=== PATIENT | female | born 1960 | race Caucasian/White ===

== ENCOUNTER 2023-11-06 12:36 | Day surgery (SDC) | payer BC, SELFPAY ==
[2023-11-06] VITALS (13 sets, daily range): BP systolic 99–112; BP diastolic 45–60; BMI 23.1
--- NOTE | 2023-11-06 07:54 | ED.GENMED ---
History of Present Illness
General
Chief Complaint: Abdominal Pain
Time Seen by Provider: 11/06/23 07:38
Travel History
Have you had any contact with someone who has COVID-19?: No
Do you have any symptoms of coronavirus? Fever > 100 degrees, chills, cough, shortness of breath, sore throat, loss of taste or smell, muscle aches, or headache?: No
History of Present Illness
History of Present Illness:
63-year-old female presents to the emergency department for evaluation of upper abdominal pain that began last night associated with nausea, vomiting, and diarrhea. The symptoms improved this morning but focal right lower quadrant pain developed.
Denies any fevers or night sweats. No history of abdominal surgeries. No ill contacts at home.
Review of Systems
Review of Systems
Allergies reviewed?: Yes
All Other Systems: ROS reviewed and negative except as documented in HPI and ROS
Phy Exam
Physical Exam
Physical Exam:
GEN: Well appearing, NAD, WDWN
HEENT: Oral mucosa moist, no scleral icterus
Cardiac: Regular rate and rhythm
Lung: No respiratory distress, no tachypnea
Abdomen: Soft, severe tenderness to the right lower quadrant consistent with McBurney's point, no rigidity
MSK: No gross deformity or injuries
Skin: Good color, no pallor or jaundice, no rashes
Neuro: AO x3, moves all extremities freely
Psych: Calm, cooperative
Course
Orders/Labs/Results
Orders:
Orders
11/06/23 Breakfast
NPO
Allow oral meds: No
Allow clear liquids: No
11/06/23 07:53
CT Abd/Pel (IV only)-DH only Urgent
Comment:
Reason For Exam: RLQ pain
0.9% Sodium Chloride 1000 ml [Nss] 1,000 ml IV BOLUS
Ondansetron Injectable [Zofran] 4 mg IV NOW STA
11/06/23 07:57
Complete Blood Count/With Diff Urgent
Comprehensive Metabolic Panel Urgent
Lipase Urgent
11/06/23 10:31
Piperacillin/Tazo 3.375 Gram [Zosyn] 3.375 gram in 50 ml IV NOW
11/06/23 11:20
HYDROmorphone [Dilaudid] 0.5 mg IV Q2HPRN PRN
11/06/23 12:30
Bupivacaine Mpf 0.25% [Sensorcaine-Mpf 0.25% Vial] 30 ml .ROUTE .STK-MED ONE
11/06/23 12:33
Fentanyl Citrate/Pf [Sublimaze] 100 mcg .ROUTE .STK-MED ONE
11/06/23 12:37
HYDROmorphone [Dilaudid] 0.5 mg IV Q2HPRN PRN
11/06/23 12:55
Diphenhydramine [Benadryl] 50 mg .ROUTE .STK-MED ONE
11/06/23 13:00
Dexamethasone Sod Phosphate [Decadron] 20 mg .ROUTE .STK-MED ONE
Lidocaine HCl/Pf [Xylocaine-Mpf 1% Vial] 50 mg .ROUTE .STK-MED ONE
Ondansetron Injectable [Zofran] 4 mg .ROUTE .STK-MED ONE
Propofol [Diprivan] 20 ml .ROUTE .STK-MED
11/06/23 13:02
Acetaminophen 1000MG/100Ml [Ofirmev] 1,000 mg in 100 ml .ROUTE .STK-MED
Ketorolac [Toradol] 30 mg .ROUTE .STK-MED ONE
11/06/23 13:15
OR Pathology Routine
Pre-Operative Diagnosis: acute appendicitis
Post-Operative Diagnosis: acute appendicitis
Operative Procedure: Lap Appendectomy
Surgeon: Naomi
Circulating Nurse: Pavan
Specimen Type: appendix
11/06/23 13:21
Glycopyrrolate [Robinul] 0.2 mg .ROUTE .STK-MED ONE
Neostigmine [Prostigmin] 3 mg .ROUTE .STK-MED ONE
11/06/23 13:52
Admit Patient As Directed
Co-Sign Provider:
Level of Care: Post Proc/Surg Recovery
Assign to:: Medical/Surgical
Physician / Group: [facility]/General surgery
Diagnosis: acute appendicitis
Reason for Overnight Stay: Standard of Care
Code Status As Directed
Resuscitation Status: Full Code
Acetaminophen [Tylenol] 650 mg PO Q4HPRN PRN
HYDROmorphone [Dilaudid] 1 mg IV Q4HPRN PRN
Ketorolac [Toradol] 10 mg IV Q6HPRN PRN
Oxycodone [Roxicodone] 5 mg PO Q4HPRN PRN
Activity As Directed
Activity Level: Out of Bed-Early Mobility
Vital Signs As Directed
Frequency: Per unit guidelines
11/06/23 13:53
Pneumatic Compression Sleeves As Directed
Type: Knee high
DX Deep Vein Thrombosis Video Routine
11/06/23 14:00
0.9% Sodium Chloride 1000 ml [Nss] 1,000 ml IV 80 mls/hr
Piperacillin/Tazo 3.375 Gram [Zosyn] 3.375 gram in 50 ml IV Q6H
11/06/23 14:18
Fentanyl Citrate/Pf [Sublimaze] 25 mcg IV PACU-Q5MPRN PRN
Fentanyl Citrate/Pf [Sublimaze] 50 mcg IV PACU-Q5MPRN PRN
Meperidine [Demerol] 12.5 mg IV PACU-Q5MPRN PRN
Ondansetron Injectable [Zofran] 4 mg IV PACU-ONCEPRN PRN
Prochlorperazine [Compazine] 5 mg IV PACU-ONCEPRN PRN
Notify MD As Directed
Notify physician if: for SDS patients with known or suspected sleep obstructive sleep apnea, monitor in the
PACU.
Notify MD for any apneic/desaturation episodes
O2 Therapy [RESP] Urgent
Titrate/Wean O2 to maintain O2 sat greater than (%): 92
Special Instructions: -Provide supplemental oxygen to achieve O2 sat of 92% or greater.
-After 15 min, may wean O2 and discontinue if patient is able to maintain O2 sat of 92%
or greater during recovery period.
If patient is a discharge home, without oxygen therapy, notify anestheiologist if
unable to maintain O2 SAT of 92% or greater on room air for MD clearance.
11/06/23 14:30
Normosol (Mult Electrolytes) [Normosol-R] 1,000 ml IV PER PROTOCOL
11/06/23 Dinner
Regular
11/06/23 18:00
Enoxaparin Sodium [Lovenox] 40 mg SC QPM
Abnormal Lab Results
11/06/23
07:57
WBC 16.3 H 10^3/uL
(4.8-10.8)
RBC 3.82 L 10^6/uL
(4.20-5.40)
Hgb 11.7 L g/dL
(12.0-16.0)
Hct 32.9 L %
(37.0-47.0)
Abs Immat Gran (auto) 0.1 H 10^3/uL
(0-0.05)
Absolute Neuts (auto) 14.6 H 10^3/uL
(1.4-6.5)
Absolute Lymphs (auto) 0.6 L 10^3/uL
(1.2-3.4)
Absolute Monos (auto) 1.0 H 10^3/uL
(0.1-0.6)
Immature Gran % 0.6 H %
(0-0.5)
Neutrophils % 89.7 H %
(42.2-75.2)
Lymphocytes % 3.5 L %
(20.5-51.1)
BUN 19 H mg/dl
(7-17)
Glucose 135 H mg/dl
(70-99)
11/06/23 07:57
11/06/23 07:57
Vital Signs
Initial and Last Documented VS:
Initial Vital Signs
Temp Pulse Resp BP Pulse Ox
99.0 F 84 20 100/56 98
11/06/23 07:27 11/06/23 07:27 11/06/23 07:27 11/06/23 07:27 11/06/23 07:27
Last Documented Vital Signs
Temp Pulse Resp BP Pulse Ox
98.1 F 84 15 104/48 99
11/06/23 14:00 11/06/23 14:02 11/06/23 11:30 11/06/23 14:02 11/06/23 11:30
MDM/Problems Addressed
MDM/Problems Addressed:
CT confirms appendicitis, gen surg made aware will take to OR for intervention
*Critical Care Note
Total Time (30-74mins, 75-104mins- exclusive of procedures): Not Applicable
ED Attending Note
-
Portions of this chart may have been created with voice recognition software.� Occasional wrong word or��sound alike� substitutions may have occurred due to the inherent limitations of voice recognition software.
Discharge Plan
Departure
Patient Disposition: Admit
Date of Disposition: 11/06/23
Time of Disposition: 10:33
Admit to: Med/Surg
Presentation/result/management discussed w/ accepting MD/DO: General Surgery
Discharge Problem:
Acute appendicitis
Interventions
Interventions:
*Risk Screen - Suicide Last Done: 11/06/23 08:06
*General Assessment Last Done: 11/06/23 08:06
*Neglect/Abuse Screening Last Done: 11/06/23 08:06
ED- Fall Risk Assessment Last Done: 11/06/23 12:12
*ED COVID-19 Vaccine History Last Done: 11/06/23 07:43
*Nursing Disposition Last Done: 11/06/23 12:12
PO-Zzupab-Othndbjpmp Assessment Last Done: 11/06/23 08:06
Discharge Date and Time
Discharge Date/Time: 11/06/23 12:18
[2023-11-06] MEDS: NSS 1000 IV ×2 (08:02→14:30)
[2023-11-06] MEDS: ZOFRAN 4 MG IV (08:03)
[2023-11-06 08:08] LABS: % Basophils 0.1 % (0-2); % Eosinophils 0.1 % (0-6); % Immature Granulocytes 0.6 % (0-0.5); % Lymphocytes 3.5 % (20.5-51.1); % Neutrophils 89.7 % (42.2-75.2); Absolute Immature Granulocytes 0.1 10^3/uL (0-0.05); Absolute Lymphocytes 0.6 10^3/uL (1.2-3.4); Absolute Neutrophils 14.6 10^3/uL (1.4-6.5); Hematocrit 32.9 % (37.0-47.0); Hemoglobin 11.7 g/dL (12.0-16.0); Mean Corp Hgb Conc. 35.6 g/dL (33.0-37.0); Mean Corpuscular Hgb 30.6 pg (27.0-31.0); Mean Corpuscular Volume 86.1 fL (81.0-99.0); Mean Platelet Volume 10.2 fL (7.4-10.4); Nucleated Red Blood Cells % 0 %; Platelet Count 181 10^3/uL (130-400); Red Blood Cell Count 3.82 10^6/uL (4.20-5.40); Red Cell Dist. Width 11.6 % (11.5-14.5); White Blood Cell Count 16.3 10^3/uL (4.8-10.8)
[2023-11-06 08:28] LABS: ALT (SGPT) 19 U/L (0-35); AST (SGOT) 25 U/L (14-36); Albumin 4.3 g/dl (3.5-5.0); Alkaline Phosphatase 91 U/L (38-126); Blood Urea Nitrogen 19 mg/dl (7-17); Carbon Dioxide 25 mmol/L (22-30); Chloride 102 mmol/L (98-107); Estimated Creatinine Clearance 83 ml/min; Glucose 135 mg/dl (70-99); Lipase 40 U/L (23-300); Potassium 4.2 mmol/L (3.5-5.1); Sodium 136 mmol/L (135-145); Total Bilirubin 1.2 mg/dl (0.2-1.3); Total Protein 7.3 g/dl (6.3-8.2); eGFR > 60.00
[2023-11-06] MEDS: ZOSYN 50 IV ×3 (10:36→21:49)
--- NOTE | 2023-11-06 11:04 | HPS.HSE ---
Addendum entered and electronically signed by Javi Salgado MD 11/06/23 11:20:
Patient seen and examined. Agree with assessment plan as documented below.
Patient is a 63 yo F with no pertinent PMH who presents with less than 24 hours of periumbilical abdominal pain localizing to the RLQ. Pain and symptoms have progressed overnight. Associated nausea and vomiting. No fevers or chills. No urinary
symptoms. Looser stools. Denies any chronic GI issues. No family history of IBD or colon cancers. Prior colonoscopy was notable for polyps performed at outside institutions.
Gen: NAD
Abd: soft, tender to palpation in RLQ, ND, non-peritoneal
Labs and CT scan imaging were reviewed.
Patient is a 63 yo F p/w acute appendicitis
The natural history and pathophysiology of appendicitis was discussed. Anatomy was reviewed. Options for management including medical management with antibiotics versus surgical management with appendectomy were considered and discussed. The pros
and cons of both approaches was discussed. Specifically, we discussed failure of medical management and future episodes of sinusitis versus surgical risk. Recommend and plan for appendectomy.
Plan for laparoscopic appendectomy. The procedure itself, as well as the risks, benefits, and alternatives was discussed. Specifically, we discussed the risk of bleeding, infection, injury to surrounding structures (bowel, bladder), staple line
leak, need for open procedure. Typical postprocedure recovery was discussed. All questions answered. Consent signed.
-- Laparoscopic appendectomy
-- NPO, IVF
-- Antibiotics: Zosyn
-- Pain control: Tylenol and IV Dilaudid
Original Note:
Family Physician
-
Family Physician: NOT KNOW UNKNOWN - PT DOES
Chief Complaint
-
abdominal pain
History of Present Illness
This is a 63 yo female without prior surgical history who presents with abdominal pain which began yesterday evening. Initially, her pain was generalized, but as the night wore on and pain became more severe, it localized to the RLQ. She had
diarrhea overnight with nausea and vomiting. She notes no fevers or chills. Pain is a little improved after analgesics in the ED, but tender to the RLQ with light palpation.
Medical History
Past Medical History
Past Medical History: Reports Psychiatric (depression) and Other (OA right hip)
Past Surgical History: Reports None and Other (Routine colonoscopies x2 with polypectomy with first colonoscopy)
Social History
Tobacco: Non-smoker
Alcohol: Occasional
Personal: Single
Living: Alone
Family History
Family History: Not pertinent
Allergies / Home Medications
Allergies reflects when Allergies were last updated in [employer].
Home Medications with original date entered in [employer]
Allergy/Medication List:
NKDA
Takes Celexa 10mg PO daily and Ibuprofen 400mg prn
Review of Systems
-
History Source: Patient and Family
A 12 point ROS was completed and negative except as noted: Yes
Physical Exam
Vital Signs
Vital Signs
Temp Pulse Resp BP Pulse Ox
99.0 F 68 16 110/60 100
11/06/23 07:27 11/06/23 09:55 11/06/23 09:55 11/06/23 09:55 11/06/23 09:55
Physical Exam
General: Well Developed and Well Nourished
HEENT: Moist mucous membranes
Respiratory: Non Labored Respirations
GI: Soft, Non Distended and Tender (RLQ)
Skin: Warm and Dry
Neuro: Awake, Alert and AO x 3
Psych: Calm
Laboratory Results
-
11/06/23 07:57
11/06/23 07:57
Laboratory Results
Total Bilirubin 1.2 mg/dl (0.2-1.3) 11/06/23 07:57
AST 25 U/L (14-36) 11/06/23 07:57
ALT 19 U/L (0-35) 11/06/23 07:57
Alkaline Phosphatase 91 U/L (38-126) 11/06/23 07:57
Lipase 40 U/L (23-300) 11/06/23 07:57
Data Reviewed
-
CT Scan: Image Personally Visualized and interpreted, Report Reviewed by me, Discussed with Physician and Discussed with Patient
Lab Data: Labs Reviewed by me, Discussed with Physician and Discussed with Patient
Old Records: Reviewed
Impression/Plan
-
IMPRESSION:
63 yo female presenting with <24 hours of abdominal pain with n/v/d. Pain localizing to the RLQ with tenderness on exam. CT imaging reviewed and consistent with acute appendicitis. AFVSS. Leukocytosis present. ABX given in ED.
PLAN:
NPO except meds
OR later today for lap appi
IV zosyn given in ED
Analgesics/antiemetics prn
--- NOTE | 2023-11-06 11:16 | W.SUR.PREOP ---
Pre-Operative Surgical Note
-
I have examined this patient prior to the performance of the scheduled procedure.
The patient's condition is unchanged from the time of the current History and
Physical and the patient is able to undergo the scheduled procedure.
--- NOTE | 2023-11-06 13:55 | W.IMMPOSTOP ---
Addendum entered and electronically signed by Javi Salgado MD 11/06/23 14:10:
[facility]#[id number]
Original Note:
Surgical Immed Post Op Note
-
Primary Surgeon: Naomi
Assisting Surgeon: None
Pre-op Diagnosis: Acute appendicitis
Post-op Diagnosis: Acute appendicitis
Procedure Performed: Laparoscopic appendectomy
Anesthesia Type: General
Specimen / Cultures:
1. Appendix
Estimated Blood Loss: 3 cc
Complications: None
Operative Findings:
1. Acutely inflamed gangrenous appendix, no jason perforation, turbid fluid within pelvis
2. Mesentery and attachments take with Ligasure, base with nance load stapler
--- NOTE | 2023-11-06 15:11 | PTCARENOTE ---
pt to floor 1510. family in room. pt has mild discomfort. RFA NSS 80ml/hr. 3 lap sites. bed low, call monson in reach.
[2023-11-06] MEDS: LOVENOX 40 MG SC (17:03)
[2023-11-07] MEDS: NSS 1000 IV (01:47)
[2023-11-07] MEDS: ZOSYN 50 IV (04:07)
[2023-11-07 06:00] VITALS: BMI 23.1
--- NOTE | 2023-11-07 06:13 | PTCARENOTE ---
Pt slept well overnight. No issues to report. Pt denies any complaints of pain. Pt ambulatory to the bathroom when needed. lap sites x3 intact/ open to air. IVF infusing as ordered. Will continue to monitor.
[2023-11-07 07:00] VITALS: BP 107/51
--- NOTE | 2023-11-07 08:21 | W.PN.GS2 ---
Addendum entered and electronically signed by Javi Salgado MD 11/07/23 08:29:
Patient seen and examined. Agree with assessment plan as documented below.
Recovering well. No postoperative concerns. Tolerating diet, pain well-controlled. Abdomen benign. Given severity of appendicitis plan for 4 days antibiotics postoperatively. Okay for discharge today.
Original Note:
Today's Communication / Plan
-
Dispo planning
Assessment / Plan
-
63 yo female presenting with acute appendicitis now POD #1 lap appi
AFVSS
Pain well controlled
Tolerating diet
--Continue regular diet
--PO analgesics
--Transition to PO abx upon d/c for 3 days
--D/C to home
Subjective Data
-
Date of Service: November 07, 2023
Patient seen and examined at bedside with Dr. Salgado. Denies n/v. Tolerating diet. Minimal post op soreness.
Objective Data
-
Intake and Output
11/06/23 11/07/23 11/08/23
06:59 06:59 06:59
Intake Total 1590 / 1590
Balance 1590 / 1590
Intake:
Oral fluids 480 / 480
IV fluids (Total) 1010 / 1010
normosol r 50 / 50
IV piggybacks 100 / 100
Other:
Number of approximated MODERATE 3
amounts of urine
Vital Signs
Temp Pulse Resp BP Pulse Ox
97.9 F 61 16 107/51 99
11/07/23 07:00 11/07/23 07:00 11/07/23 07:00 11/07/23 07:00 11/07/23 07:00
Lab Results
11/06/23 07:57
11/06/23 07:57
Calcium 9.0 mg/dl (8.4-10.2) 11/06/23 07:57
Total Bilirubin 1.2 mg/dl (0.2-1.3) 11/06/23 07:57
AST 25 U/L (14-36) 11/06/23 07:57
ALT 19 U/L (0-35) 11/06/23 07:57
Alkaline Phosphatase 91 U/L (38-126) 11/06/23 07:57
Total Protein 7.3 g/dl (6.3-8.2) 11/06/23 07:57
Albumin 4.3 g/dl (3.5-5.0) 11/06/23 07:57
Physical Exam
-
NAD
ABD soft, mild incisional tenderness, ND
Incisions well approximated, intact with some surrounding ecchymosis, no erythema
--- NOTE | 2023-11-07 09:58 | CM ---
Patient seen bedside.
IA completed.
Patient lives with dog in a 1 story home.
patient independent prior to admission without assistive devices.
Patient drives.
Patient has not had VN in the past.
PCP: Dr Sousa
Pharmacy: [facility]
Plan: home no needs, family will transport.
[2023-11-07] MEDS: ZOSYN IV (12:00)
[2023-11-07] MEDS: TYLENOL 650 MG PO (12:01)
== END 2023-11-07 14:23 | disposition home or self-care (01) ==
LOC: PACU 12:36
PROVIDERS: Physician Assistant; ATTENDING PHYSICIAN Emergency Medicine
DX: K35.891 Other acute appendicitis without perforation, with gangrene (principal)
CPT/HCPCS: 44970; 88304; 74177; 80053; 83690; 85025; 96361; 96374; 96375; 99285; Q9967

== ENCOUNTER 2024-01-04 15:11 | Outpatient (RCR) | payer BC, SELFPAY | END 2024-01-04 23:59 | disposition home or self-care (01) | LOC: RPT 15:11 | DX: M16.11 Unilateral primary osteoarthritis, right hip (principal); Z73.6 Limitation of activities due to disability | CPT/HCPCS: 97110; 97140; 97161 ==

== ENCOUNTER → 2024-05-18 08:59 | Outpatient (REF) | payer BC, SELFPAY | LOC: HWWDC 08:59 | PROVIDERS: ATTENDING PHYSICIAN Nurse Practitioner Family; FAMILY PHYSICIAN Family Medicine | DX: Z12.31 Encounter for screening mammogram for malignant neoplasm of breast (principal) | CPT/HCPCS: 77063; 77067 ==